=== PATIENT | male | born 1960 | race Caucasian/White ===

== ENCOUNTER 2022-07-12 20:53 | Emergency (ER) | payer SELFPAY ==
[~2022-07-12] VITALS: Ht 182.9 cm; Wt 80.0 kg
[2022-07-12 21:05] VITALS: BP 106/64
[2022-07-12] MEDS ORDERED: ACETAMINOPHEN 325MG TABLET PO STA (21:27)
[2022-07-12] MEDS ORDERED: SODIUM CHLORIDE 0.9% 1,000 ML IV ONE (21:30)
[2022-07-12] MEDS ORDERED: ONDANSETRON HCL 4MG/2ML INJ IV ONE (21:30)
[2022-07-12 21:40] LABS: BASOPHILS % 0.8 % (0.0-2.0); EOSINOPHILS % 1.5 % (0.0-5.0); HEMOGLOBIN. 13.6 g/dL (14.0-18.0); LYMPHOCYTES % 13.1 % (20.0-50.0); MEAN CORPUSCULAR HEMOGLOBIN 27.6 pg (28.0-32.0); MEAN CORPUSCULAR VOLUME 83.6 fL (80.0-94.0); MEAN PLATELET VOLUME 9.7 fl (7.4-10.4); MONOCYTES % 11.9 % (2.0-8.0); NEUTROPHILS % 72.7 % (40.0-76.0); PLATELET 145 x1000/uL (130-400); RED CELL DISTRIBUTION WIDTH 14.3 % (11.6-14.6)
[2022-07-12 21:44] LABS: CHLORIDE 108 mEq/L (98-107)
[2022-07-12 22:31] LABS: INR 1.1; PROTHROMBIN TIME 11.6 sec (9.6-11.0)
[2022-07-12] MEDS ORDERED: NIRM1TAB PO (23:37)
== END 2022-07-13 00:07 | disposition home or self-care (01) ==
LOC: ER 20:53
DX: R55 Syncope and collapse (principal); U07.1 COVID-19
CPT/HCPCS: 36415; 71045; 80053; 83690; 84484; 85025; 85610; 87426; 87804; 93005; 96361; 96374; 99285; C9803; J2405; J7030